=== PATIENT | female | born 1940 | race Caucasian/White ===

== ENCOUNTER → 2020-01-06 12:55 | Outpatient (BNVA) | payer MEDICARE, SELFPAY | PROVIDERS: Visit Provider Emergency Medicine | DX: M79.671 Pain in right foot (principal) | CPT/HCPCS: 73630 ==

== ENCOUNTER → 2020-10-19 12:46 | Outpatient (BNVA) | payer MEDICARE, SELFPAY | PROVIDERS: Visit Provider Emergency Medicine | DX: M79.662 Pain in left lower leg (principal); W19.XXXA Unspecified fall, initial encounter | CPT/HCPCS: 73590 ==

== ENCOUNTER → 2021-03-01 10:00 | Outpatient (BNVA) | payer MEDICARE, SELFPAY | PROVIDERS: Visit Provider Emergency Medicine | DX: N39.0 Urinary tract infection, site not specified (principal); R31.9 Hematuria, unspecified | CPT/HCPCS: 81000 ==

== ENCOUNTER 2021-10-10 06:00 | Outpatient (RCR) | payer MEDICARE, SELFPAY | END 2021-11-09 23:59 | disposition home or self-care (01) | LOC: MPT 06:00 | PROVIDERS: Referring Provider Registered Nurse; Visit Provider Registered Nurse | DX: M62.81 Muscle weakness (generalized) (principal) | CPT/HCPCS: 97110; 97112; 97162 ==

== ENCOUNTER 2021-11-10 06:00 | Outpatient (RCR) | payer MEDICARE, SELFPAY | END 2021-11-23 23:59 | disposition home or self-care (01) | LOC: MPT 06:00 | PROVIDERS: Referring Provider Registered Nurse; Visit Provider Registered Nurse | DX: M62.81 Muscle weakness (generalized) (principal); M79.662 Pain in left lower leg; M79.89 Other specified soft tissue disorders; M25.552 Pain in left hip | CPT/HCPCS: 97110; 97112; 97116 ==

== ENCOUNTER 2023-01-26 22:23 | Observation (INO) | payer MEDICARE, MEDICAID, SELFPAY ==
[2023-01-26 22:31] VITALS: BP 116/63; PULSE 90; RESP 16; TEMP 38.2; O2SAT 94
[2023-01-26 23:53] LABS: Basophils % 0.2 %; Hematocrit 36.3 % (37.0-47.0); Hemoglobin 11.5 g/dL (11.5-15.3); Lymphocytes # 0.3 10^3/uL (0.8-4.8); Lymphocytes % 3.2 %; Mean Corpuscular HGB Conc 31.7 g/dL (30.0-36.0); Mean Corpuscular Hemoglobin 26.8 pg (28.0-34.0); Mean Corpuscular Volume 84.6 fl (81-99); Mean Platelet Volume 8.9 fL (7.4-10.4); Monocytes # 0.3 10^3/uL (0.2-0.9); Monocytes % 3.1 %; Neutrophils # 7.85 10^3/uL (1.8-7.7); Nucleated Red Blood Cells % 0 %; Platelet Count 212 10^3/cmm (130-400); Red Blood Count 4.29 10^6/uL (4.1-5.3); Red Cell Distribution Width 13.8 % (12.1-15.1); White Blood Count 8.4 10^3/uL (4.0-10.0)
[2023-01-27] VITALS (14 sets, daily range): BP systolic 118–149; BP diastolic 61–81; PULSE 68–104; RESP 16–18; TEMP 36.3–36.9; O2SAT 91–100
[2023-01-27 00:23] LABS: Anion Gap 15.3 (5-19); Blood Urea Nitrogen 13 mg/dL (8-23); Calcium 8.8 mg/dL (8.5-10.5); Carbon Dioxide 24 mmol/L (22-29); Chloride 91 mmol/L (98-107); Glucose 105 mg/dL (65-115); Osmolality Calculated 262 mOsm/kg (285-295); Potassium 4.3 mmol/L (3.5-5.1); Sodium 126 mmol/L (136-145)
--- NOTE | 2023-01-27 01:08 | XRR_ITS ---
PROCEDURE INFORMATION: Exam: XR Chest Exam date and time: 01/27/2023 1:20 AM Age: 82 years old Clinical indication: Fever; Additional info: Fever, weakness TECHNIQUE: Imaging protocol: Radiologic exam of the chest. Views: 1 view. COMPARISON: No relevant prior studies available. FINDINGS: Lungs: Unremarkable. No consolidation. A few minute calcified lung nodules are seen incidentally. Pleural spaces: Unremarkable. No pleural effusion. No pneumothorax. Heart/Mediastinum: Heart is large. Vasculature: Advanced diffuse vascular calcification noted. Bones/joints: Unremarkable. XR/XR chest 1V portable [id number] IMPRESSION: 1. No consolidation or acute finding. 2. Large heart.
[2023-01-27 01:32] LABS: Lactic Sepsis W/Reflex 0.7 mmol/L (0.5-2.2)
[2023-01-27 01:35] LABS: Alanine Aminotransferase 17 U/L (0-33); Albumin Level 3.5 g/dL (3.5-5.2); Alkaline Phosphatase 81 U/L (35-105); Aspartate Amino Transferase 23 U/L (0-32); Globulin 2.5 g/dL (1.3-4.6); Total Bilirubin 0.4 mg/dL (0.15-1.2)
[2023-01-27] MEDS: sodium chloride 0.9% 1,000 ML 999 ML IV (01:48)
[2023-01-27 02:51] LABS: Add Urine Microscopic? NO; Charge for UA Resulting for Rev
[2023-01-27 02:52] LABS: Bilirubin Urine Neg (Negative); Blood Urine Neg (Negative); Glucose Urine UA Norm (Normal); Ketones Urine Negative (Negative); Leukocyte Esterase Urine Negative (Negative); Nitrate Urine Negative (Negative); Protein Urine Neg (Negative); Urine Appearance Clear (CLEAR); Urine Color Yellow (Yellow); Urobilinogen Urine Norm (Negative); pH Urine 6.5 (5-7)
--- NOTE | 2023-01-27 03:33 | USR_ITS ---
PROCEDURE INFORMATION: Exam: US Duplex Left Lower Extremity Veins, Limited Exam date and time: 01/27/2023 10:34 AM Age: 82 years old Clinical indication: Pain; Leg, lower; Left; Prior surgery; Surgery date: 6+ months; Surgery type: Varicose v; Additional info: Lle pain, redness, swelling TECHNIQUE: Imaging protocol: Real-time duplex ultrasound of the left extremity with 2-D adam scale, color Doppler flow and spectral waveform analysis including responses to compression and other maneuvers (when performed) with image documentation. Limited exam focused on the left lower extremity veins. COMPARISON: CR XR tibia fibula LT 2V [id number] 10/19/2020 1:09 PM FINDINGS: Left deep veins: The common femoral, femoral, popliteal and visualized calf/posterior tibial veins are patent without thrombus. Normal Doppler waveforms. Normal compressibility and/or augmentation response. Left superficial veins: Saphenofemoral junction appears unremarkable. Soft tissues: Unremarkable. US/CV venous duplex [facility] [id number] IMPRESSION: No evidence of deep vein thrombosis.
[2023-01-27] MEDS: enoxaparin 80 mg/0.8 mL Syringe 70 MG SUBCUT (05:50)
[2023-01-27] MEDS: vancomycin 1,250 MG/250 ML PIGGYBACK 250 MG IV ×2 (05:51→23:37)
--- NOTE | 2023-01-27 05:51 | P.HP_ITS ---
Providers/Chief Complaint Admitting Physician: Judy Montenegro MD Chief Complaint: lethargic, fever, flushed History of Present Illness Klaudia Salinas is a 82 year old female was sent from assisted living for complaint of left lower extremity swelling and redness and pain off and on since 1 month. She was prescribed oral antibiotics for left lower extremity cellulitis 3 weeks ago but has no relief. US venous Doppler left lower extremity done 3 weeks ago was negative for DVT. she is now complaining of progressively increasing pain in the left lower extremity associated with fever 102 and restriction of movements. She complains of generalized body aches and weakness. she also has a history of fall 3 times on left knee resulting in left knee swelling redness and warmth. Denies any cough cold nausea vomiting urinary or bowel complaints. Review of Systems Narrative: As per HPI Medications/Allergies Home Medications Medication Instructions Recorded Confirmed Last Taken Type aspirin 81 mg tablet,delayed 81 mg PO DAILY 01/06/20 03/01/21 Unknown History release (Adult Aspirin Regimen) denosumab 60 mg/mL subcutaneous SUBCUT ONCE 01/06/20 03/01/21 Unknown History syringe (Prolia) hydroxychloroquine 200 mg tablet 200 mg PO BID 01/06/20 03/01/21 Unknown History losartan 100 mg tablet 100 mg PO DAILY 01/06/20 03/01/21 Unknown History metoprolol succinate 50 mg 50 mg PO BID 01/06/20 03/01/21 Unknown History tablet,extended release 24 hr omeprazole 20 mg capsule,delayed 20 mg PO DAILY 01/06/20 03/01/21 Unknown Hi story release simvastatin 5 mg tablet 5 mg PO DAILY 01/06/20 03/01/21 Unknown History spironolactone 25 mg tablet 25 mg PO ONCE 01/06/20 03/01/21 Unknown History doxycycline hyclate 100 mg tablet 100 mg PO BID 7 days #14 tabs 03/01/21 03/01/21 Unknown Rx Allergies Allergy/AdvReac Type Severity Reaction Status Date / Time cephalexin [From Keflex] Allergy upset Verified 01/26/23 22:39 stomach ciprofloxacin [From Cipro] Allergy upset Verified 01/26/23 22:39 stomach levofloxacin [From Levaquin] Allergy major Verified 01/26/23 22:39 stomach issue nitrofurantoin Allergy ALGY-Anaphy Verified 01/26/23 22:39 [From Macrobid] laxis Penicillins Allergy upset Verified 01/26/23 22:39 stomach Sulfa (Sulfonamide Allergy upset Verified 01/26/23 22:39 Antibiotics) stomach PFSH Acute PFSH: Social History Smoking and tobacco status: never smoked Alcohol intake: never Substance/Drug Use: never Vitals/I&O/Wt Last Vital Signs Temp 100.7 F H 01/26/23 22:31 Pulse 100 01/27/23 05:30 Resp 16 01/27/23 05:30 BP 141/73 01/27/23 05:30 Pulse Ox 92 01/27/23 05:30 O2 Del Method Room Air 01/26/23 22:31 01/26/23 01/26/23 01/27/23 14:59 22:59 06:59 Intake Total 1000 / 1000 Balance 1000 / 1000 Weight last 48 hrs Weight 77.564 kg Physical Exam Narrative: Alert awake oriented x3. Comfortably lying in bed in mild distress due to pain Chest clear to auscultation bilaterally Cardiovascular exam normal Abdomen soft nontender nondistended normal bowel sounds present Extremity right lower extremity trace edema present, left lower extremity erythema warmth and swelling present, also left knee swollen tender warm and erythematous. Data 01/26/23 23:45 01/26/23 23:45 Micro: Microbiology 01/27/23 01:26 Blood Culture - Preliminary Blood SPECIMEN COLLECTED 01/26/23 23:45 Blood Culture - Preliminary Blood SPECIMEN COLLECTED A&P Assessment and plan (1) Cellulitis of left lower extremity: (2) Pain and swelling of left knee: (3) UTI (urinary tract infection): (4) Fever: Plan 82-year-old woman with significant medical history presented with left lower extremity swelling pain and redness off-and-on since 1 month nonresponsive to oral antibiotics, repeated fall with left knee swelling erythema and warmth and fever likely secondary to cellulitis left lower extremity. Also found to have mild UTI Will admit to medical floor Start IV vancomycin 1 g every 12 hours IV fluids normal saline at 75 mL/h Pain control with p.o. Percocet 1 tab every 4 hours as needed Follow-up US venous Doppler left lower extremity Check ultrasound left knee to evaluate for septic arthritis Resume home medications DVT prophylaxis with subcu heparin Full code for now(daughter Loan is the power of tax associate attorney) Attestations Medical Necessity Statement*: In view of prolonged cellulitis of left lower extremity unresponsive to oral antibiotics and left knee swelling and pain, she would need IV antibiotics and further work-up for left knee swelling. Hence she would need continued hospitalization for more than 2 midnights Time Spent in Patient Care: 30 minutes Coding Level of Care Code 54660 Diagnoses Cellulitis of left lower extremity L03.116 Pain and swelling of left knee M25.562; M25.462 UTI (urinary tract infection) N39.0 Fever R50.9 Time Spent (min) 30
[2023-01-27] MEDS: metoprolol succinate ER (24 HR) 50 mg Tablet PO ×2 (10:30→16:49)
[2023-01-27] MEDS: atorvastatin 40 mg Tablet 20 MG PO (10:30)
[2023-01-27] MEDS: losartan 50 mg Tablet 100 MG PO (10:30)
[2023-01-27] MEDS: hydroxychloroquine 200 mg Tablet PO ×2 (10:30→16:49)
[2023-01-27] MEDS: hydroCHLOROthiazide 25 mg Tablet PO (10:30)
[2023-01-27] MEDS: aspirin 81 mg EC Tablet PO (10:30)
[2023-01-27] MEDS: pantoprazole DR 40 mg Tablet PO (10:30)
--- NOTE | 2023-01-27 12:06 | PM.MISC ---
Miscellaneous Note Note: She was seen and examined today No active complaints She is wearing compression stockings Awake alert Febrile event noted I will change her antibiotics to p.o. regimen No active signs of purulent cellulitis Her sodium 126 We will give her gentle fluid hydration
[2023-01-27] MEDS: sodium chloride 0.9% 1,000 ML 30 ML IV (14:27)
--- NOTE | 2023-01-27 15:41 | ED_ITS ---
HPI - Weakness General: Chief complaint: Weakness Stated complaint: lethargic, fever, flushed Time Seen by Provider: 01/27/23 00:46 Source: patient History of Present Illness: 82 year old female with a history of recurrent UTI. She presents after being on four different antibiotics for urinary tract infection. She continues to have symptoms. She also has symptoms of increased pain, redness, warmth, and swelling to the left lower extremity which has been ongoing for several days. She had an ultrasound for DVT 12 days ago that was negative at an outside facility. She also notes some knee swelling in that area following a contusion. This evening, she had a fever of 101, and continues to have a fever here. She is generally weak. MD Complaint: generalized weakness Onset (ago): day(s) Duration: constant and progressively worsening Location: generalized Migration: none Severity: moderate Quality: aching and other Relieving factors: none Exacerbating factors: other Context: recent illness Associated symptoms: Reports chills, decreased appetite, dysuria, fever(s) and nausea; Denies chest pain, confusion, short of breath or vomiting Review of Systems Const: Reports: fever(s) and chills ENMT: Denies: throat pain Card: Denies: chest pain Resp: Denies: dyspnea, productive cough or non-productive cough GI: Reports: nausea; Denies: abdominal pain or vomiting : Reports: dysuria; Denies: flank pain Skin/Breast: Reports: rash Neuro: Denies: confusion PFS ED PFSH: Social History Smoking and tobacco status: never smoked Alcohol intake: never Substance/Drug Use: never Physical Exam Const: GENERAL APPEARANCE: cooperative, ill appearing and frail appearing HENMT: COMMON NORMALS: normocephalic, atraumatic and Normal external nose pr esent HEAD & SCALP: normocephalic and atraumatic NOSE: Normal external nose present Eye: COMMON NORMALS: Equal, round and reactive pupils present and EOMs intact bilaterally PUPIL: Yes Equal, round and reactive pupils present Neck/C-Spine: GENERAL: Yes trachea midline Chest: CHEST: Yes Symmetrical chest wall rise Resp: COMMON NORMALS: normal respiratory effort, No use of accessory muscles and clear to auscultation bilaterally AUSCULTATION: clear to auscultation bilaterally Cardio: COMMON NORMALS: regular rate and regular rhythm RATE: regular rate RHYTHM: regular rhythm GI: COMMON NORMALS: Normal to inspection, nondistended, normoactive bowel sounds present PALPATION: Yes Tenderness to palpation present (GI) (suprapubic) : BLADDER/KIDNEY EXAM: No CVA tenderness Back/Pelvis: GENERAL BACK: No CVA tenderness Extremity: NARRATIVE EXTREMITY EXAM: Examination of the right lower extremity reveals beefy red indurated skin. No fluctuance. Skin is tender to palpation. Calf is tender to palpation. There is edema. There is perhaps a mild knee effusion. There is ecchymosis over the anterior knee. Capillary refill is normal. Psych: COMMON NORMALS: mental status grossly normal Course Vital Signs: Vital signs: Vital Signs Temperature 98.2 F 01/27/23 15:37 Pulse Rate 74 01/27/23 15:37 Respiratory Rate 16 01/27/23 15:37 Blood Pressure 125/76 01/27/23 15:37 Pulse Oximetry 92 01/27/23 15:37 Oxygen Delivery Me thod Room Air 01/27/23 15:37 MDM - Weakness Medical Decision Making 82 year old female with a history of continued left lower extremity pain, redness, swelling despite multiple antibiotics. She has a fever this evening. She's generally weak. Her sodium is down to 125. She received an IV fluid bolus, and IV antibiotics here in the ER. We were unable to get a hold of ultrasound, to repeat her DVT study. She's been given an injection of Lovenox to cover until this can be completed. She does not have a urinary tract infection on urinalysis this morning. With weakness, failure of outpatient management, and unknown status of left lower extremity DVT acuna, she'll be admitted. Hospitalist was contacted and agrees to admit. Lab Data 01/26/23 23:45 01/26/23 23:45 Radiology Impressions Chest X-Ray 01/27/23 01:08 IMPRESSION: 1. No consolidation or acute finding. 2. Large heart. Venous Duplex 01/27/23 03:33 IMPRESSION: No evidence of deep vein thrombosis. Laboratory Results WBC 8.4 10^3/uL (4.0-10.0) 01/26/23 23:45 RBC 4.29 10^6/uL (4.1-5.3) 01/26/23 23:45 Hgb 11.5 g/dL (11.5-15.3) 01/26/23 23:45 Hct 36.3 % (37.0-47.0) L 01/26/23 23:45 MCV 84.6 fl (81-99) 01/26/23 23:45 MCH 26.8 pg (28.0-34.0) L 01/26/23 23:45 MCHC 31.7 g/dL (30.0-36.0) 01/26/23 23:45 RDW 13.8 % (12.1-15.1) 01/26/23 23:45 Plt Count 212 10^3/cmm (130-400) 01/26/23 23:45 MPV 8.9 fL (7.4-10.4) 01/26/23 23:45 Neut % (Auto) 93.0 % 01/26/23 23:45 Lymph % (Auto) 3.2 % 01/26/23 23:45 [place] % (Auto) 3.1 % 01/26/23 23:45 Eos % (Auto) 0.0 % 01/26/23 23:45 Baso % (Auto) 0.2 % 01/26/23 23:45 Neut # (Auto) 7.85 10^3/uL (1.8-7.7) H 01/26/23 23:45 Lymph # (Auto) 0.3 10^3/uL (0.8-4.8) L 01/26/23 23:45 [place] # (Auto) 0.3 10^3/uL (0.2-0.9) 01/26/23 23:45 Eos # (Auto) 0.0 10^3/uL (0.0-0.8) 01/26/23 23:45 Baso # (Auto) 0.0 10^3/uL (0.0-0.1) 01/26/23 23:45 Nucleated RBC % (auto) 0 % 01/26/23 23:45 Nucleated RBCs # 0.0 /100WBC 01/26/23 23:45 Sodium 126 mmol/L (136-145) L 01/26/23 23:45 Potassium 4.3 mmol/L (3.5-5.1) 01/26/23 23:45 Chloride 91 mmol/L (98-107) L 01/26/23 23:45 Carbon Dioxide 24 mmol/L (22-29) 01/26/23 23:45 Anion Gap 15.3 (5-19) 01/26/23 23:45 BUN 13 mg/dL (8-23) 01/26/23 23:45 Creatinine 0.8 mg/dL (0.5-0.9) 01/26/23 23:45 GFR Calculation Not Reportable 01/26/23 23:45 Glucose 105 mg/dL (65-115) 01/26/23 23:45 Calculated Osmolality 262 mOsm/kg (285-295) L 01/26/23 23:45 Lactic Acid 0.7 mmol/L (0.5-2.2) 01/26/23 22:45 Calcium 8.8 mg/dL (8.5-10.5) 01/26/23 23:45 Total Bilirubin 0.4 mg/dL (0.15-1.2) 01/26/23 22:45 Direct Bilirubin 0.20 mg/dL (0.00-0.30) 01/26/23 22:45 AST 23 U/L (0-32) 01/26/23 22:45 ALT 17 U/L (0-33) 01/26/23 22:45 Alkaline Phosphatase 81 U/L (35-105) 01/26/23 22:45 Total Protein 6.0 g/dL (6.6-8.7) L 01/26/23 22:45 Albumin 3.5 g/dL (3.5-5.2) 01/26/23 22:45 Globulin 2.5 g/dL (1.3-4.6) 01/26/23 22:45 Urine Color Yellow (Yellow) 01/27/23 02:16 Urine Appearance Clear (CLEAR) 01/27/23 02:16 Urine pH 6.5 (5-7) 01/27/23 02:16 Ur Specific [place] 1.010 (1.005-1.030) 01/27/23 02:16 Urine Protein Neg (Negative) 01/27/23 02:16 Urine Glucose (UA) Norm (Normal) 01/27/23 02:16 Urine Ketones Negative (Negative) 01/27/23 02:16 Urine Blood Neg (Negative) 01/27/23 02:16 Urine Nitrate Negative (Negative) 01/27/23 02:16 Urine Bilirubin Neg (Negative) 01/27/23 02:16 Urine Urobilinogen Norm mg/dL (Negative) 01/27/23 02:16 Ur Leukocyte Esterase Negative (Negative) 01/27/23 02:16 Discharge Plan Discharge Patient Disposition: Admitted As Inpatient Admit Provider: Judy Montenegro Clinical Impression: Cellulitis of left lower extremity, Fever, Acute hyponatremia Condition: Stable Coding Level of Care Code ED Dietary Supervisor for Daphney Garcia
[2023-01-27] MEDS: doxycycline 100 mg Tablet PO (16:49)
--- NOTE | 2023-01-27 19:14 | PC.PHAR ---
Pharmacokinetic dosing service Date: 01/27/2023 Time: 1899 Objective: Patient: Klaudia Salinas Floor: 259[address]1 Age: 82 yo Serum creatinine: 0.8 mg/dL Height: 68.0 Inches Weight (kg): 77.564 Diagnosis: Relevant medical/social history: Cultures and sensitivities: Other labs: Assessment: IBW (kg): 63.90 Dosing wt(kg): 77.564 Estimated Creatinine clearance (ml/min): 53.7 CRCL method: Cockcroft and Gault using ibw(default). Drug selected: Vancomycin Loading dose (mg): 0 Vd (liters): 69.8 (factor used: 0.9 L/kg) Jose (hr-1): 0.049 Half life (hrs): 14.15 Recommended dose: 1250 mg Interval: 18 hrs Infusion time (hrs): 1.5 Predicted peak (mcg/mL): 29.5 Predicted trough (mcg/mL): 13.14 Total body weight is being used for vancomycin dosing. Renal function is stable [ ] /unstable [ ] Recommendations: Give Vancomycin 1250 mg q 18 hrs with an expected Cpeak of 29.5 mcg/ml and an expected Ctrough of 13.14 mcg/ml Renal dosing of other antibiotics (review renal dosing of other medications and list guidelines here): Thank you for the consult, will continue to follow. Signature: Gianna Reyes [facility]
[2023-01-27] MEDS: enoxaparin 40 mg/0.4 mL Syringe SUBCUT (19:36)
[2023-01-27 20:03] LABS: Sodium 126 mmol/L (136-145)
[2023-01-28] VITALS (7 sets, daily range): BP systolic 123–144; BP diastolic 62–82; PULSE 58–72; RESP 16–18; TEMP 36.4–37; O2SAT 92–100
[2023-01-28 04:03] LABS: Basophils % 0.5 %; Eosinophils # 0.1 10^3/uL (0.0-0.8); Eosinophils % 1.7 %; Hematocrit 32.5 % (37.0-47.0); Hemoglobin 10.5 g/dL (11.5-15.3); Lymphocytes # 0.7 10^3/uL (0.8-4.8); Lymphocytes % 16.3 %; Mean Corpuscular HGB Conc 32.3 g/dL (30.0-36.0); Mean Corpuscular Hemoglobin 27.3 pg (28.0-34.0); Mean Corpuscular Volume 84.6 fl (81-99); Mean Platelet Volume 9.3 fL (7.4-10.4); Monocytes # 0.3 10^3/uL (0.2-0.9); Monocytes % 7.5 %; Neutrophils # 3.03 10^3/uL (1.8-7.7); Neutrophils % 73.5 %; Nucleated Red Blood Cells % 0 %; Platelet Count 164 10^3/cmm (130-400); Red Blood Count 3.84 10^6/uL (4.1-5.3); Red Cell Distribution Width 13.4 % (12.1-15.1); White Blood Count 4.1 10^3/uL (4.0-10.0)
--- NOTE | 2023-01-28 04:38 | PC.NURSE ---
Unable to collect urine sample yet due to patient taking hat out of commode. Patient was educated to leave the hat in the commode so we can collect a urine sample.
[2023-01-28 04:39] LABS: Anion Gap 11.7 (5-19); Blood Urea Nitrogen 13 mg/dL (8-23); Calcium 7.5 mg/dL (8.5-10.5); Carbon Dioxide 24 mmol/L (22-29); Chloride 97 mmol/L (98-107); Glucose 93 mg/dL (65-115); Osmolality Calculated 268 mOsm/kg (285-295); Potassium 3.7 mmol/L (3.5-5.1); Sodium 129 mmol/L (136-145)
[2023-01-28 04:51] LABS: C Reactive Protein 68.4 mg/L (0.0-4.9); Uric Acid 3.9 mg/dL (2.4-5.7)
[2023-01-28 04:55] LABS: Slide Review Slide Review Perform
--- NOTE | 2023-01-28 06:00 | CT_ITS ---
WS: [id number] CT LEFT LOWER EXTREMITY WITH CONTRAST HISTORY: left ankle pain and cellulitis Technique: All CT scans at [facility] use at least one of these dose optimization techniques: automated exposure control; mA and/or kV adjustment per patient size (includes targeted exams where dose is matched to clinical indication); or iterative reconstruction. DLP: 622.63 mGy-cm. Contrast: Omnipaque 350; 50 mL. COMPARISON: None available. No destructive bone lesions or fracture. There is diffuse soft tissue edema throughout the LEFT lower extremity. Edema begins at the mid diaphysis of the tibia and fibula and is circumferential and diff use to the ankle. There is no focal collection or abnormal enhancement. Extensive calcifications also noted in the soft tissues. Large suprapatellar joint effusion. Mild atrophy muscles lower extremity. CT/CT lower leg LT w con [id number] IMPRESSION: 1. Diffuse circumferential soft tissue edema beginning in the mid diaphysis LE FT lower extremity to the ankle. 2. No focal enhancing collections. 3. No fractures. 4. Large suprapatellar joint effusion LEFT knee.
[2023-01-28] MEDS: iohexol 350 mg/mL 500 mL Btl (per mL) IV (08:08)
--- NOTE | 2023-01-28 08:15 | XR_ITS ---
WS: [id number] EXAMINATION: XR knee LT 1-2V [id number] REASON FOR EXAM: knee pain COMPARISON: 10/19/2020 ORDER DATE: 01/28/2023 8:15 AM FINDINGS: There are marginal osteophytes associated with the tibial spines, possibly some ligamentous calcifica tion with lateral and patellofemoral compartment narrowing. There is no sign of any acute fracture or dislocation. Minor vascular calcification posteriorly. There seems to be a prominent amount of subcu taneous edema surrounding the knee which could be due localized trauma, cellulitis, or other systemic causes of peripheral edema. XR/XR knee LT 1-2V [id number] IMPRESSION: LATERAL AND PATELLOFEMORAL COMPARTMENT NARROWING WITH OSTEOARTHRITIC CHANGES. DIFFUSE SUBCUTANEOUS EDEMA AT THE KNEE LEVEL.
[2023-01-28] MEDS: losartan 50 mg Tablet 100 MG PO (08:34)
[2023-01-28] MEDS: hydroxychloroquine 200 mg Tablet PO ×2 (08:34→17:18)
[2023-01-28] MEDS: atorvastatin 40 mg Tablet 20 MG PO (08:34)
[2023-01-28] MEDS: metoprolol succinate ER (24 HR) 50 mg Tablet PO (08:35)
[2023-01-28] MEDS: pantoprazole DR 40 mg Tablet PO (08:35)
[2023-01-28] MEDS: aspirin 81 mg EC Tablet PO (08:35)
[2023-01-28 09:38] LABS: Urine Random Sodium 32 mmol/L
--- NOTE | 2023-01-28 11:46 | PM.PN ---
Subjective Subjective: This morning I have requested MRI after discussing left knee imaging report with Dr. Holm No fever, no leukocytosis Continue IV vancomycin Sodium 129 We will continue normal saline for now CRP 68 TSH normal No signs of gout Redness of lower extremity improving Bradycardia noted on vital patient is hemodynamically stable Vitals/I&O/Wt Last Vital Signs Temp 97.6 F 01/28/23 11:29 Pulse 58 L 01/28/23 11:29 Resp 16 01/28/23 11:29 BP 129/71 01/28/23 11:29 Pulse Ox 100 01/28/23 11:29 O2 Del Method Room Air 01/27/23 15:37 01/27/23 01/28/23 01/28/23 22:59 06:59 14:59 Intake Total 120 / 240 250 / 490 480 / 480 Balance 120 / 240 250 / 490 480 / 480 Weight last 48 hrs Weight 77.564 kg Physical Exam Narrative: Patient is laying supine Awake and alert Left lower extremity redness warmth and tenderness below the left knee Edema of left leg improving no hyperemia or signs of purulence noted Edema of left leg is improving Patient is able to flex and extend her knee without significant pain S1, S2 sinus bradycardia Hemodynamically stable Currently on room air Pleasant and cooperative Data 01/28/23 03:42 01/28/23 03:42 Micro: Microbiology 01/27/23 01:26 Blood Culture - Preliminary Blood NEGATIVE TO DATE 01/26/23 23:45 Blood Culture - Preliminary Blood NEGATIVE TO DATE A&P Assessment and plan (1) Acute hyponatremia: (2) Fever: (3) UTI (urinary tract infection): (4) Pain and swelling of left knee: (5) Cellulitis of left lower extremity: Plan Hyponatremia I will keep patient on normal saline, sodium is gradually improving Cellulitis of left leg: Improving continue IV vancomycin No signs of fever or leukocytosis Left knee pain, patient sustained 2 falls at assisted living, getting MRI left knee today For now showing signs of effusion and osteoarthritis At this point any diagnostic tap would be risky because of cellulitis of left leg Does not have typical gout related signs Sinus bradycardia she is taking metoprolol which I will change to once a day instead of twice a day Daughter updated Spoke with Dr. Holm today I will update her after MRI report Continue PT Full code Regular diet Attestations Medical Necessity Statement*: Continue medical management Diagnoses Acute hyponatremia E87.1 Fever R50.9 UTI (urinary tract infection) N39.0 Pain and swelling of left knee M25.562; M25.462 Cellulitis of left lower extremity L03.116
--- NOTE | 2023-01-28 17:16 | P.CONIM_ITS ---
Providers/Reason For Consult Consulting Physician/Specialty*: Silvina Leggett MD - Orthopedics Reason for Consult*: Left knee pain and lower extremity swelling Requesting Physician: Dr. Jennie Coleman Attending Physician: Jennie Coleman MD History of Present Illness History of Present Illness Klaudia Salinas is a 82 year old female who presented to the emergency department last evening. The patient presented with a history of left lower extremity pain as well as redness. By report, the patient has recurrent UTIs, and she has been on multiple antibiotics for treatment. 12 days prior to admission, she had ultrasound for DVT at an outside facility. Prior to admis sania, she was found to have a fever, she was generally weak, and she fell directly onto her left knee. She presented with left lower extremity swelling and contusion. She was admitted to the medical service where antibiotics were continued. She was found to have low sodium. I was consulted secondary to left lower extremity swelling and the possible need for aspiration. Review of Systems Narrative: As per HPI Const: Reports: fever(s) and chills ENMT: Denies: throat pain Card: Denies: chest pain Resp: Denies: dyspnea, productive cough or non-productive cough GI: Reports: nausea; Denies: abdominal pain or vomiting : Reports: dysuria; Denies: flank pain Musc: Denies: joint warmth Skin/Breast: Reports: rash Neuro: Denies: confusion Medications/Allergies Home Medications Medication Instructions Recorded Confirmed Last Taken Type aspirin 81 mg tablet,delayed 81 mg PO DAILY 01/06/20 01/27/23 Unknown History release (Adult Aspirin Regimen) denosumab 60 mg/mL subcutaneous See Rx Instructions .Route .COMPLEX 01/06/20 01/27/23 Unknown History syringe (Prolia) hydroxychloroquine 200 mg tablet 200 mg PO BID 01/06/20 01/27/23 Unknown History losartan 100 mg tablet 100 mg PO DAILY 01/06/20 01/27/23 Unknown History omeprazole 20 mg capsule,delayed 20 mg PO DAILY 01/06/20 01/27/23 Unknown History release simvastatin 5 mg tablet 5 mg PO DAILY 01/06/20 01/27/23 Unknown History amlodipine 2.5 mg tablet 2.5 mg PO DAILY 01/27/23 01/27/23 Unknown History ascorbic acid (vitamin C) 500 mg 500 mg PO DAILY 01/27/23 01/27/23 Unknown History capsule,extended release (Vitamin C) calcium carbonate 600 mg calcium 600 mg PO DAILY 01/27/23 01/27/23 Unknown History (1,500 mg) tablet (Calcium) cephalexin 500 mg capsule 500 mg PO QID 01/27/23 01/27/23 Unknown History magnesium 200 mg tablet 200 mg PO DAILY 01/27/23 01/27/23 Unknown History omega-3 fatty acids-fish oil 684 1 cap PO DAILY 01/27/23 01/27/23 Unknown History mg-1,200 mg capsule,delayed release ondansetron 4 mg disintegrating 4 mg PO Q6H PRN Nausea And Vomiting 01/27/23 01/27/23 Unknown History tablet tizanidine 2 mg tablet 2 mg PO Q6H PRN Muscle Spasm 01/27/23 01/27/23 Unknown History Allergies Allergy/AdvReac Type Severity Reaction Status Date / Time cephalexin [From Keflex] Allergy upset Verified 01/26/23 22:39 stomach ciprofloxacin [From Cipro] Allergy upset Verified 01/26/23 22:39 stomach gluten Allergy ADR-Gastrointestinal Verified 01/27/23 06:36 Upset levofloxacin [From Levaquin] Allergy major Verified 01/26/23 22:39 stomach issue nitrofurantoin Allergy ALGY-Anaphy Verified 01/26/23 22:39 [From Macrobid] laxis Penicillins Allergy upset Verified 01/26/23 22:39 stomach Sulfa (Sulfonamide Allergy upset Verified 01/26/23 22:39 Antibiotics) stomach Current Medications Generic Name Dose Route Start Last Admin Trade Name Freq PRN Reason Stop Dose Admin Aspirin 81 mg 01/27/23 09:00 01/28/23 08:35 Aspirin 81 Mg Ec Tablet PO 81 mg DAILY MONCHO Administration Atorvastatin Calcium 20 mg 01/27/23 09:00 01/28/23 08:34 Atorvastatin 40 Mg Tablet PO 20 mg DAILY MONCHO Administration Enoxaparin Sodium 40 mg 01/27/23 19:00 01/27/23 19:36 Enoxaparin 40 Mg/0.4 Ml Syringe SUBCUT 40 mg Q24H MONCHO Administration Hydroxychloroquine Sulfate 200 mg 01/27/23 09:00 01/28/23 08:34 Hydroxychloroquine 200 Mg Tablet PO 200 mg BID MONCHO Administration Sodium Chloride 1,000 mls @ 30 mls/hr 01/27/23 12:15 01/27/23 14:27 Sodium Chloride 0.9% IV 30 mls/hr .Q24H MONCHO Administration Vancomycin/PEG/NADA/Lysine/Water 1,250 mg in 250 mls @ 250 mls/hr 01/28/23 00:00 01/28/23 01:33 Vancocin IV Infused Q18H MONCHO Infusion Losartan Potassium 100 mg 01/27/23 09:00 01/28/23 08:34 Losartan 50 Mg Tablet PO 100 mg DAILY MONCHO Administration Pantoprazole Sodium 40 mg 01/27/23 09:00 01/28/23 08:[address] 40 Mg Tablet PO 40 mg DAILY MONCHO Administration PFSH Acute PFSH: Social History Smoking and tobacco status: never smoked Alcohol intake: never Substance/Drug Use: never Dietary Habits: Current diet type/program: regular Caffeine: No Exercise: Physical activity functional status: independent ambulation and normal ROM and activity Safety: Seatbelt use: always Home Safety: Working smoke detector in home: Yes Personal Safety: Do you feel safe at home: Yes Victim of physical abuse: No Victim of emotional abuse: No Victim of sexual abuse: No Would you like help information on resources?: No Vitals/I&O/Wt Last Vital Signs Temp 97.6 F 01/28/23 15:23 Pulse 58 L 01/28/23 11:29 Resp 17 01/28/23 15:23 BP 127/73 01/28/23 15:23 Pulse Ox 100 01/28/23 11:29 O2 Del Method Room Air 01/27/23 15:37 01/28/23 01/28/23 01/28/23 06:59 14:59 22:59 Intake Total 250 / 490 840 / 840 Balance 250 / 490 840 / 840 Weight last 48 hrs Weight 171 lb Physical Exam Const: COMMON NORMALS: no acute distress, average body habitus, patient oriented x3 and alert GENERAL APPEARANCE: cooperative and comfortable ORIENTATION/CONSCIOUSNESS: Yes awake HENMT: COMMON NORMALS: normocephalic and atraumatic HEAD & SCALP: normocephalic and atraumatic Eye: GENERAL EYE: appearance normal, both eyes and all related structures Chest: COMMONS NORMALS: normal inspection of the chest Resp: COMMON NORMALS: normal respiratory effort EFFORT & INSPECTION: Yes able to speak in complete sentences and Yes symmetric chest movement Extremity: LEFT LOWER EXTREMITY: Yes knee joint (There is the swelling throughout the left lower extremity) Left knee: Yes inspection (Ecchymotic change about the knee joint), Yes ROM (Lacks 5 degrees of extension, flexes to 90 degrees), Yes neurovascular exam (Intact distally) and Yes other Neuro: COMMON NORMALS: patient oriented x3 SENSORIUM/ORIENTATION: Yes alert Psych: COMMON NORMALS: mental status grossly normal APPEARANCE: Yes grossly normal ATTITUDE: Yes calm and Yes engaged ATTENTION/CONCENTRATION: Yes attention grossly intact Skin: COMMON NORMALS: no rashes or lesions noted GENERAL SKIN EXAM: no rashes or lesions noted Data 01/28/23 03:42 01/28/23 03:42 Micro: Microbiology 01/27/23 01:26 Blood Culture - Preliminary Blood NEGATIVE TO DATE 01/26/23 23:45 Blood Culture - Preliminary Blood NEGATIVE TO DATE Xray Ortho: My impression: X-rays are obtained of the patient's left knee. There are diffuse degenerative changes, but no evidence of acute fracture or dislocation. Other CT: My impression: CT of the patient's left lower extremity with contrast was obtained. Orthopedically, there is no evidence of fracture or dislocation about the knee. There is degenerative osteoarthritic change and mild diffuse soft tissue swelling. There is also noted to be an effusion in the knee. A&P Assessment and plan (1) Pain and swelling of left knee: The patient has degenerative osteoarthritic changes within the knee associated with effusion, and she has a history of a recent fall. She presented with diffuse swelling throughout the leg and cellulitis about the ankle. She also had low sodium and it is felt that she probably fell secondary to this low sodium. She denies passing out, but she does remember falling. Imaging studies demonstrate no acute findings within the knee. She has what is likely chronic d egenerative osteoarthritis which was aggravated by her fall. Likely, the effusion is related to hematoma. There is no significant heat or redness about the knee to indicate anything of concern which would require aspiration. Recommendation is to continue current antibiotics for cellulitis lower than the knee, continue with compression stocking on the left lower extremity, and treat the patient's low sodium. (2) Cellulitis of left lower extremity: Coding Level of Care Code 11113 Diagnoses Pain and swelling of left knee M25.562; M25.462 Cellulitis of left lower extremity L03.116
[2023-01-28] MEDS: vancomycin 1,250 MG/250 ML PIGGYBACK 250 MG IV (17:18)
[2023-01-28 17:44] LABS: Vancomycin Trough 9.7 ug/mL (10-15)
[2023-01-28] MEDS: enoxaparin 40 mg/0.4 mL Syringe SUBCUT (19:58)
[2023-01-28] MEDS: oxyCODONE-APAP 5-325 mg Tablet 1 TAB PO (21:32)
[2023-01-29] MEDS: vancomycin 1,000 MG in sodium chloride 0.9% 250 ML 250 MG IV (04:21)
[2023-01-29] MEDS: sodium chloride 0.9% 1,000 ML 30 ML IV (04:22)
[2023-01-29 04:23] VITALS: BP 167/93; PULSE 85; RESP 19; TEMP 36.4; O2SAT 95
[2023-01-29 05:23] LABS: Basophils % 0.3 %; Eosinophils # 0.2 10^3/uL (0.0-0.8); Eosinophils % 2.1 %; Hematocrit 34.1 % (37.0-47.0); Hemoglobin 10.8 g/dL (11.5-15.3); Lymphocytes # 1.1 10^3/uL (0.8-4.8); Lymphocytes % 12.9 %; Mean Corpuscular HGB Conc 31.7 g/dL (30.0-36.0); Mean Corpuscular Hemoglobin 26.7 pg (28.0-34.0); Mean Corpuscular Volume 84.4 fl (81-99); Mean Platelet Volume 9.5 fL (7.4-10.4); Monocytes # 0.7 10^3/uL (0.2-0.9); Monocytes % 8.3 %; Neutrophils # 6.56 10^3/uL (1.8-7.7); Neutrophils % 76.1 %; Nucleated Red Blood Cells % 0 %; Platelet Count 178 10^3/cmm (130-400); Red Blood Count 4.04 10^6/uL (4.1-5.3); Red Cell Distribution Width 13.2 % (12.1-15.1); White Blood Count 8.6 10^3/uL (4.0-10.0)
[2023-01-29 05:42] LABS: Blood Urea Nitrogen 13 mg/dL (8-23); Calcium 7.9 mg/dL (8.5-10.5); Carbon Dioxide 24 mmol/L (22-29); Chloride 98 mmol/L (98-107); Glucose 113 mg/dL (65-115); Osmolality Calculated 275 mOsm/kg (285-295); Sodium 132 mmol/L (136-145)
[2023-01-29 08:00] VITALS: BP 138/69; PULSE 68; RESP 17; TEMP 36.2; O2SAT 94
[2023-01-29 08:46] VITALS: BP 138/69
[2023-01-29] MEDS: magnesium oxide 400 mg tablet 200 MG PO (08:46)
[2023-01-29] MEDS: losartan 50 mg Tablet 100 MG PO (08:46)
[2023-01-29] MEDS: pantoprazole DR 40 mg Tablet PO (08:47)
[2023-01-29] MEDS: aspirin 81 mg EC Tablet PO (08:47)
[2023-01-29] MEDS: atorvastatin 40 mg Tablet 20 MG PO (08:47)
[2023-01-29] MEDS: hydroxychloroquine 200 mg Tablet PO (08:47)
--- NOTE | 2023-01-29 11:20 | PM.DCS ---
Discharge Providers Date of Admission: 01/27/23 06:16 Date of Discharge: January 29, 2023 Attending Provider at Admission: Judy Montenegro MD Attending Provider at Discharge: Jennie Coleman MD Diagnoses at Discharge Discharge Diagnosis (1) Pain and swelling of left knee: Status: Acute (2) Cellulitis of left lower extremity: Status: Acute Reason for Visit Reason for Visit: lethargic, fever, flushed Hospital Course Hospital Course 82-year-old female who presented to hospital for worsening of fatigue, lethargy, recurrent falls failed outpatient therapy for left leg cellulitis. Patient was started on IV vancomycin, she only spiked fever on day 100.7 otherwise remained afebrile hemodynamic stable, cultures remain negative, no signs of gout, uric acid at goal, no signs of septic joint, she was continued on IV vancomycin, Dr. Capellan was consulted for large left knee effusion which was detected on the x-ray and CT scan of lower extremity which only showed fluid collection related to edema/cellulitis. She has been recommended to use doxycycline and compression stockings up to her thigh. I do believe her recurrent falls at assisted living will related to hyponatremia, sodium dropped down to 126 she has poor p.o. intake with use of normal saline sodium went up to 132 within 48 hours, Her left lower extremity does not have any purulent cellulitis, there is no erythema, edema is improving with compression stockings, ankle swelling is reduced as well I will discontinue amlodipine, I will give her Lasix to be used on as-needed basis along potassium supplements CRP trending down, she does use hydroxychloroquine for lupus which may be continued Physical Exam Narrative: Awake and alert Lower extremity edema improving Continue wearing compression stockings Redness of left knee improving as well It is not warm to touch, nontender on palpation Good range of motion S1, S2 awake and alert Euvolemic GCS 15 Nonfocal neuro Discharge Data Studies Completed and Pending Completed Studies During Hospitalization Category Date Time Status CT lower leg LT w con [id number] Routine Cat Scan 01/28/23 06:00 Completed XR chest 1V portable [id number] Stat Exams 01/27/23 01:08 Completed XR knee LT 1-2V [id number] Routine Exams 01/28/23 08:15 Completed US venous duplex lower extremity LT [CV venous duplex Ultrasound 01/27/23 03:33 [place] [id number]] Stat Pending at discharge Category Date Time Status Blood Culture Stat Lab 01/27/23 01:26 Results Osmolality Serum Routine Lab 01/27/23 Received Osmolality Urine Routine Lab 01/27/23 06:59 Received Radiology Impressions Chest X-Ray 01/27/23 01:08 IMPRESSION: 1. No consolidation or acute finding. 2. Large heart. Venous Duplex 01/27/23 03:33 IMPRESSION: No evidence of deep vein thrombosis. Lower Extremity CT 01/28/23 06:00 IMPRESSION: 1. Diffuse circumferential soft tissue edema beginning in the mid diaphysis LEFT lower extremity to the ankle. 2. No focal enhancing collections. 3. No fractures. 4. Large suprapatellar joint effusion LEFT knee. Knee X-Ray 01/28/23 08:15 IMPRESSION: LATERAL AND PATELLOFEMORAL COMPARTMENT NARROWING WITH OSTEOARTHRITIC CHANGES. DIFFUSE SUBCUTANEOUS EDEMA AT THE KNEE LEVEL. Laboratory Results WBC 8.6 10^3/uL (4.0-10.0) 01/29/23 05:08 RBC 4.04 10^6/uL (4.1-5.3) L 01/29/23 05:08 Hgb 10.8 g/dL (11.5-15.3) L 01/29/23 05:08 Hct 34.1 % (37.0-47.0) L 01/29/23 05:08 MCV 84.4 fl (81-99) 01/29/23 05:08 MCH 26.7 pg (28.0-34.0) L 01/29/23 05:08 MCHC 31.7 g/dL (30.0-36.0) 01/29/23 05:08 RDW 13.2 % (12.1-15.1) 01/29/23 05:08 Plt Count 178 10^3/cmm (130-400) 01/29/23 05:08 MPV 9.5 fL (7.4-10.4) 01/29/23 05:08 Neut % (Auto) 76.1 % 01/29/23 05:08 Lymph % (Auto) 12.9 % 01/29/23 05:08 [place] % (Auto) 8.3 % 01/29/23 05:08 Eos % (Auto) 2.1 % 01/29/23 05:08 Baso % (Auto) 0.3 % 01/29/23 05:08 Neut # (Auto) 6.56 10^3/uL (1.8-7.7) 01/29/23 05:08 Lymph # (Auto) 1.1 10^3/uL (0.8-4.8) 01/29/23 05:08 [place] # (Auto) 0.7 10^3/uL (0.2-0.9) 01/29/23 05:08 Eos # (Auto) 0.2 10^3/uL (0.0-0.8) 01/29/23 05:08 Baso # (Auto) 0.0 10^3/uL (0.0-0.1) 01/29/23 05:08 Nucleated RBC % (auto) 0 % 01/29/23 05:08 Nucleated RBCs # 0.0 /100WBC 01/29/23 05:08 Sodium 132 mmol/L (136-145) L 01/29/23 05:08 Potassium 4.0 mmol/L (3.5-5.1) 01/29/23 05:08 Chloride 98 mmol/L (98-107) 01/29/23 05:08 Carbon Dioxide 24 mmol/L (22-29) 01/29/23 05:08 Anion Gap 14.0 (5-19) 01/29/23 05:08 BUN 13 mg/dL (8-23) 01/29/23 05:08 Creatinine 0.6 mg/dL (0.5-0.9) 01/29/23 05:08 GFR Calculation Not Reportable 01/29/23 05:08 Glucose 113 mg/dL (65-115) 01/29/23 05:08 Calculated Osmolality 275 mOsm/kg (285-295) L 01/29/23 05:08 Lactic Acid 0.7 mmol/L (0.5-2.2) 01/26/23 22:45 Uric Acid 3.9 mg/dL (2.4-5.7) 01/28/23 03:42 Calcium 7.9 mg/dL (8.5-10.5) L 01/29/23 05:08 Total Bilirubin 0.4 mg/dL (0.15-1.2) 01/26/23 22:45 Direct Bilirubin 0.20 mg/dL (0.00-0.30) 01/26/23 22:45 AST 23 U/L (0-32) 01/26/23 22:45 ALT 17 U/L (0-33) 01/26/23 22:45 Alkaline Phosphatase 81 U/L (35-105) 01/26/23 22:45 C-Reactive Protein 35.0 mg/L (0.0-4.9) H 01/29/23 05:08 Total Protein 6.0 g/dL (6.6-8.7) L 01/26/23 22:45 Albumin 3.5 g/dL (3.5-5.2) 01/26/23 22:45 Globulin 2.5 g/dL (1.3-4.6) 01/26/23 22:45 TSH 2.30 uIU/mL (0.27-4.20) 01/27/23 19:14 Urine Color Yellow (Yellow) 01/27/23 02:16 Urine Appearance Clear (CLEAR) 01/27/23 02:16 Urine pH 6.5 (5-7) 01/27/23 02:16 Ur Specific [place] 1.010 (1.005-1.030) 01/27/23 02:16 Urine Protein Neg (Negative) 01/27/23 02:16 Urine Glucose (UA) Norm (Normal) 01/27/23 02:16 Urine Ketones Negative (Negative) 01/27/23 02:16 Urine Blood Neg (Negative) 01/27/23 02:16 Urine Nitrate Negative (Negative) 01/27/23 02:16 Urine Bilirubin Neg (Negative) 01/27/23 02:16 Urine Urobilinogen Norm mg/dL (Negative) 01/27/23 02:16 Ur Leukocyte Esterase Negative (Negative) 01/27/23 02:16 Ur Random Sodium 32 mmol/L 01/27/23 06:59 Vancomycin Trough 9.7 ug/mL (10-15) L 01/28/23 17:06 Vitals Last Vital Signs Temp 97.1 F L 01/29/23 08:00 Pulse 68 01/29/23 08:00 Resp 17 01/29/23 08:00 BP 138/69 01/29/23 08:46 Pulse Ox 94 01/29/23 08:00 O2 Del Method Room Air 01/29/23 08:00 Discharge Plan Discharge Patient Disposition: Xfer SNF Condition: Stable Prescriptions: New (DME) Jobst Ultrasheer Thigh Stockng Misc See Rx Instructions .Route Qty: 2 0RF Rx Instructions: As directed doxycycline hyclate 100 mg tablet,delayed release (DR/EC) 100 mg PO BID 7 Days Qty: 14 0RF furosemide [Lasix] 20 mg tablet 20 mg PO DAILY PRN (Reason: edema, leg edema) Qty: 14 0RF Rx Instructions: take potassium with lasix potassium chloride 10 mEq tablet extended release 10 meq PO DAILY PRN (Reason: only with laisx) Qty: 10 0RF Rx Instructions: Only with lasix Continued aspirin [Adult Aspirin Regimen] 81 mg tablet,delayed release (DR/EC) 81 mg PO DAILY losartan 100 mg tablet 100 mg PO DAILY hydroxychloroquine 200 mg tablet 200 mg PO BID simvastatin 5 mg tablet 5 mg PO DAILY omeprazole 20 mg capsule,delayed release(DR/EC) 20 mg PO DAILY Prolia 60 mg/mL syringe See Rx Instructions .ROUTE .COMPLEX Rx Instructions: subcutaneously ;Twice a year tizanidine 2 mg tablet 2 mg PO Q6H PRN (Reason: Muscle Spasm) Calcium 600 600 mg calcium (1,500 mg) Tablet 600 mg PO DAILY Vitamin C 500 mg Capsule, Extended Release 500 mg PO DAILY ondansetron 4 mg tablet,disintegrating 4 mg PO Q6H PRN (Reason: Nausea And Vomiting) magnesium 200 mg Tablet 200 mg PO DAILY [place] 3 Fish Oil 684-1,200 mg Capsule,Delayed Release(Dr/Ec) 1 cap PO DAILY Discontinued amlodipine 2.5 mg tablet 2.5 mg PO DAILY cephalexin 500 mg capsule 500 mg PO QID Discharge Orders: Discharge Order (Routine); Ordered 01/29/23 Ordered By: Jennie Coleman Referrals: Silvina Leggett MD [Physician] - 3 weeks Discharge Diet: Regular Discharge Activity: Increase activity as tolerated and Use walker/crutches as instructed Patient Instructions: Furosemide (By mouth), Doxycycline (By mouth), Potassium Chloride (By mouth), Hyponatremia, Opioid Safety Discharge Attestations Time Spent in Discharge Care*: greater than 30 min Quality Metrics Clinical Quality Measures [ No reported AMI, CVA or VTE this stay] Coding Level of Care Code Acute Code for Chg Fwd Diagnoses Pain and swelling of left knee M25.562; M25.462 Cellulitis of left lower extremity L03.116
[2023-01-29 12:00] VITALS: BP 146/78; PULSE 61; RESP 19; TEMP 36.3; O2SAT 94
[2023-01-29] MEDS: doxycycline 100 mg Tablet PO (12:08)
--- NOTE | 2023-01-29 14:01 | PM.MISC ---
Miscellaneous Note Purpose of Documentation: Documentation of follow-up Note: Plans are made for the patient is discharge today.
--- NOTE | 2023-01-29 14:03 | PC.NURSE ---
Patient's discharge was delayed due to her ride not being able to come in until later in the afternoon.
[2023-01-29 15:44] LABS: Osmolality Urine 180 mOsm/kg (50-1200)
[2023-01-29 15:49] LABS: Osmolality Serum 260 mOsm/kg (278-305)
[2023-01-29 18:09] VITALS: BP 146/78; PULSE 61; RESP 19; TEMP 36.3; O2SAT 94
== END 2023-01-29 17:30 | disposition home or self-care (01) | DRG 603 ==
LOC: ER 01-27 04:59 → MEDSURG 01-27 08:00
PROVIDERS: Admitting Provider Internal Medicine; Emergency Provider Emergency Medicine; PCP Family Medicine; Visit Provider Internal Medicine
DX: L03.116 Cellulitis of left lower limb (principal); E87.1 Hypo-osmolality and hyponatremia; N39.0 Urinary tract infection, site not specified; M79.661 Pain in right lower leg; R29.6 Repeated falls; Z79.899 Other long term (current) drug therapy; M32.9 Systemic lupus erythematosus, unspecified; Z79.82 Long term (current) use of aspirin; I73.00 Raynaud's syndrome without gangrene; M81.0 Age-related osteoporosis without current pathological fracture; M17.12 Unilateral primary osteoarthritis, left knee; M25.562 Pain in left knee; M25.462 Effusion, left knee
CPT/HCPCS: 36415; 71045; 73560; 73701; 80048; 80076; 80202; 81003; 83605; 83930; 83935; 84295; 84300; 84443; 84550; 85025; 86140; 87040; 93971; 96365; 96372; 97116; 97161; 97530; 99222; 99285; G0378; J1650; J3370; J7030; J7050; Q9967

== ENCOUNTER → 2023-03-06 08:10 | Outpatient (BNVA) | payer MEDICARE, MEDICAID, SELFPAY | PROVIDERS: PCP Family Medicine; Visit Provider Specialist | DX: M17.12 Unilateral primary osteoarthritis, left knee | CPT/HCPCS: 73560; 73565; 99204 ==

== ENCOUNTER 2024-10-06 08:17 | Outpatient (RCR) | payer MEDICARE, MEDICAID, SELFPAY | END 2024-10-09 23:59 | disposition home or self-care (01) | LOC: SPT 08:17 | PROVIDERS: Visit Provider Surgery | DX: I89.0 Lymphedema, not elsewhere classified (principal) | CPT/HCPCS: 97161 ==